=== PATIENT | female | born 1975 | race Two or more races ===

== ENCOUNTER → 2016-11-27 | Day surgery (SDC) | payer OTHER ==
[2016-11-27] VITALS (7 sets, daily range): BP systolic 107–116; BP diastolic 61–71
[~2016-11-27] VITALS: Ht 157.5 cm; Wt 79.4 kg
[~2016-11-27] MED LIST: LR 1000ml 1,000 ML IVLG SCH; LR 1000ml ONE; MULTIVITAMINS1 EAC2 ORAL; NAPROXEN250 MG ORAL; NEXIUM40 MG ORAL; PEPTO-BISM525 MG/15 PO; PREVACID30 MG ORAL; Propofol 10mg/ml 20ml IV ONE
--- NOTE | 2016-11-27 09:33 | Short Stay Surgery H&P ---
History of Present Illness History of Present Illness Chief Complaint Abdominal pains, GERDS. Dysphagia HPI Galilea Barboza is a 41 year old female who was admitted on for Abdominal Pain Patient History Allergies: Coded Allergies: SULFA (SULFONAMIDE ANTIBIOTICS) (Verified Allergy, Unknown, 11/26/16) Childhood allergy PAST MEDICAL HISTORY: Past Surgeries: Social History: Medication History Scheduled Esomeprazole Magnesium (Nexium), 40 MG ORAL DAILY, (Reported) Lansoprazole* (Prevacid*), 30 MG ORAL DAILY, (Reported) Multivitamins* (Multivitamins*), 1 TAB ORAL DAILY, (Reported) Naproxen* (Naprosyn*), 250 MG ORAL TWICE A DAY, (Reported) Miscellaneous Medications Bismuth Subsalicylate (Pepto-Bismol), 525 MG PO, (Reported) Review of Systems Cardiovascular: Reports: no symptoms Respiratory: Reports: no symptoms Skeletal: Reports: trauma Gastrointestinal: Reports: gastro esophageal reflux disease Genitourinary: Reports: no symptoms Neurologic: Reports: no symptoms Endocrine: Reports: no symptoms Hematologic: Reports: no symptoms Physical Exam Vital Signs Last Vital Signs Date Time Temp Pulse Resp B/P Pulse Ox O2 Delivery O2 Flow Rate FiO2 11/27/16 08:59 98.2 87 18 115/71 100 Room Air Labs Laboratory Tests Test 11/27/16 08:30 Urine HCG, Qualitative Negative Skin: normal HENT: normal Heart: normal Lungs: normal Abdomen: abnormal Extremities: normal Genitourinary: normal Plan Plan of Care Upper GI endoscopy and biopsy. Preop Interventions None. Summary of Findings See the reports. Final Diagnosis: Attestation Are the patient's medical conditions optimized for surgery? Attestation Response: yes RANDALL GILES Nov 27, 2016 09:33
--- NOTE | 2016-11-27 09:34 | Pre-Procedure Note/Attestation ---
Pre-Procedure Note/Attestation Complete Prior to Procedure Planned Procedure: left Procedure Narrative: The endoscopic exam of the upper and the lower GI tract. Indications for Procedure Pre-Operative Diagnosis: R/O Peptic Ulcer/gastritis. Attestation I attest that I discussed the nature of the procedure; its benefits; risks and complications; and alternatives (and the risks and benefits of such alternatives ), prior to the procedure, with the patient (or the patient's legal promotional representative). I attest that, if there was a reasonable possibility of needing a blood transfusion, the patient (or the patient's legal promotional representative) was given the [place] Department [employer] standardized written summary, pursuant to the [employer] [place] [employer] Blood Safety Act ([place] Health and Safety Code # 1645, as amended). I attest that I re-evaluated the patient just prior to the surgery and that there has been no change in the patient's H&P, except as documented below: TISHASAID Nov 27, 2016 09:34
--- NOTE | 2016-11-27 09:36 | Endoscopy Procedure Note ---
RANDALL GILES Nov 27, 2016 09:36
--- NOTE | 2016-11-27 09:53 | Anethesia Preoperative Eval ---
Anesthesia Pre-op PMH/ROS General Date of Evaluation: Nov 27, 2016 Time of Evaluation: 09:33 Anesthesiologist: wilman ASA Score: ASA 2 Mallampati Score Class I : Soft palate, uvula, fauces, pillars visible Class II: Soft palate, uvula, fauces visible Class III: Soft palate, base of uvula visible Class IV: Only hard plate visible Mallampati Classification: Class II Surgeon: solomon Diagnosis: GERD Surgical Procedure: egd Anesthesia History: none Allergies: Coded Allergies: SULFA (SULFONAMIDE ANTIBIOTICS) (Verified Allergy, Unknown, 11/26/16) Childhood allergy Past Medical History Gastrointestinal/Genitourinary: Reports: GERD, other - lap choley Musculoskeletal/Integumentary: Reports: other - ankle surgery Anesthesia Pre-op Phys. Exam Physician Exam Last Vital Signs Date Time Temp Pulse Resp B/P Pulse Ox O2 Delivery O2 Flow Rate FiO2 11/27/16 08:59 98.2 87 18 115/71 100 Room Air Airway Exam Mallampati Score: Class II Teeth: intact Anesthesia Pre-op A/P Labs Urine Test Test 11/27/16 08:30 Urine HCG, Qualitative Negative Risk Assessment & Plan Plan: propofol Status Change Before Surgery: José Manuel Vasquez MD Nov 27, 2016 09:53
--- NOTE | 2016-11-27 09:54 | Immediate Post-Op Evaluation ---
Immediate Post-Op Evalulation Immediate Post-Op Evalulation Date of Evaluation: Nov 27, 2016 Time of Evaluation: 10:12 IV Fluids: 400 Blood Pressure Systolic: 106 Blood Pressure Diastolic: 65 Pulse Rate: 76 Respiratory Rate: 23 O2 Sat by Pulse Oximetry: 100 Temperature (Fahrenheit): 97 Pain Score (1-10): 0 Nausea: No Vomiting: No Complications none Patient Status: awake, patent, none Hydration Status: adequate José Manuel Trammell MD Nov 27, 2016 09:54
--- NOTE | 2016-11-27 09:55 | 48 Hour Post Anesthesia Eval ---
Post Anesthesia Evaluation Date of Evaluation: Nov 27, 2016 Time of Evaluation: 10:40 Blood Pressure Systolic: 109 0: 69 Pulse Rate: 78 Respiratory Rate: 17 Temperature (Fahrenheit): 98 O2 Sat by Pulse Oximetry: 100 Airway: patent Nausea: No Vomiting: No Pain Intensity: 0 Hydration Status: adequate Cardiopulmonary Status: stable Mental Status/LOC: patient returned to baseline Follow-up Care/Observations: n/a Post-Anesthesia Complications: tolerated well Follow-up care needed: ready to discharge José Manuel Trammell MD Nov 27, 2016 09:55
--- NOTE | 2016-11-27 10:01 | Endoscopy Procedure Note ---
Endoscopy Procedure Note Indication for Procedure: Abdominal pains and dysphagia. Procedures Performed: EGD - Mininmal antritis biopsied,Gastric polyposis, a 1/ 2 cm polyps removed from mid body greator curavtor by hot snare and a few other 2mm polyps removed by cold biopsy. Specimen: yes Pt Tolerated Procedure Well: Yes Estimated Blood Loss: none Anesthesiologist: Dr. Trammell. Anesthesia: moderate sedation Medication Given: see anesthesia record Implant(s) used?: No 50 yrs or older w/o bx or poly: Not Applicable 10yrs. F/U not recommended: Not Applicable If not recommended, why?: Med reason:<3 yrs.: System Reason:<3 yrs.: RANDALL GILES Nov 27, 2016 10:01
--- NOTE | 2016-11-27 10:02 | Discharge Instructions ---
Discharge Instructions Discharge Instructions Follow up with: see the doctor after two weeks in the office. For Congestive Heart Failure Reminder Report to your physician any weight gain of 5 pounds or more in one week. RANDALL GILES Nov 27, 2016 10:02
--- NOTE | 2016-11-27 17:38 | Operative Note - Dictated ---
DATE OF OPERATION: 11/27/2016 PROCEDURE: Esophagogastroduodenoscopy with biopsy. REFERRING PHYSICIAN: This patient was referred by Dr. Karthik Sumner. PREOPERATIVE DIAGNOSES: Abdominal pain, epigastric pain and dysphagia. POSTOPERATIVE DIAGNOSES: 1. Mild antritis, biopsied. 2. Multiple gastric polyp consistent with gastric polyposis, 0.5 centimeter pedunculated polyp was removed along with a few small flat 1 to 2 mm polypoid lesion, which was removed with cold biopsy forceps. The 1.5 centimeter polyp however was removed with hot snare. Otherwise, normal study. MEDICATIONS USED: Per Dr. Trammell, anesthesiologist. INSTRUMENT: GIF Olympus upper gastrointestinal video endoscope. DESCRIPTION OF PROCEDURE: The patient after arriving endoscopy unit, was told about risks and benefits of the procedure, which she accepted and signed the informed consent. She was then put on the left lateral decubitus position. After adequate IV sedation, the scope was gently passed through the cricopharyngeal area, was lodged into the upper esophagus, and gradually advanced towards gastroesophageal junction. The entire length of the esophagus looked normal. No evidence of varices, inflammatory process, ulceration, stricture, exudate etc. was found. GE junction also looked normal without evidence of Santa's or hiatal hernia. The scope at this time was advanced into the stomach. Gastric cavity was distended. The areas of the fundus and the body and the antrum were examined in an bath steward fashion. The gastric mucosa looked normal. There was no ulcers, however, multiple different size polypoid lesion was seen in the stomach, the biggest one was approximately 0.5 cm, which was pedunculated and soft and looked quite benign. It was grabbed with a hot snare and totally removed and the specimen was sent to the pathology lab. There were also other flat diminutive small polypoid lesion, size of 1 to 2 millimeter, as well as they were taken out by cold biopsy forceps and the specimen was sent to the pathology lab. The rest of the stomach looked normal except minimal inflammatory process in the antral area, which was also biopsied. Finally, the scope was guided into the duodenum. First and second portion of duodenum were found to be completely normal. At this time, one random biopsy from gastric body was obtained for evaluation of Helicobacter pylori infection and subsequently procedure was terminated. The patient tolerated the procedure well and left the endoscopy room in good condition. Said Gemma Foster DR: LAUREN JOB#: [id number] CC:
--- NOTE | 2016-11-27 18:08 | Pre-op HX & Phy Repo 2 SIG ---
DATE OF ADMISSION: 11/27/2016 This patient was referred by Dr. Karthik Sumner. This is a preoperative history and physical. HISTORY OF PRESENT ILLNESS: The patient is a 41-year-old female who is being seen prior to undergoing procedure for upper GI endoscopy for which she has been scheduled to receive evaluation of abdominal pain that she has been experiencing subsequent to her work injury. The applicant basically complaining of pain located over the mid epigastric area of moderate intensity 4-5/10, 10 being maximum. The applicant does have symptoms of gastroesophageal reflux as well. Sometime the pain is radiating towards the left side of the chest and arm as well as some voice changes. She feels pressure over her throat and does have moderate amount of heartburn for which she has been scheduled to receive medications such as Prilosec or Nexium, she takes it occasionally at night. The applicant also complains of difficulty swallowing for solids and liquids intermittently. There has been no history of major gastrointestinal bleeding however. The applicant after being injured in the job received nonsteroidal anti-inflammatory agents such as naproxen and at which time she start to experience the symptoms, she states. 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 She was working on [employer] and as such among one of these functions she got injured and started to have severe pain over the right ankle which has swelling so was started on multiple medications including naproxen and received MRIs, x-rays, and was seen by different consultants and still continues to suffer from these pains from time to time and she also does take occasional naproxen. PAST MEDICAL HISTORY: Basically is not significant except injuries over the right wrist. PAST SURGICAL HISTORY: Cholecystectomy, right ankle surgery, breast augmentation. PRESENT MEDICATIONS: Naproxen, Prilosec, and occasional Nexium. HABITS: She does not smoke but drinks occasionally. REVIEW OF SYSTEMS: Basically see present illness. PHYSICAL EXAMINATION: GENERAL: Alert and oriented woman who answers questions quite properly. VITAL SIGNS: All stable. HEENT: Normocephalic. Pupils are equal in size and reactive to light. No jaundice. Buccal cavity, tongue midline and well hydrated. No ulcers. NECK: Supple. No JVD, thyromegaly, or adenopathy. CHEST: Clear to auscultation and percussion. No rales or rhonchi. HEART: S1 and S2 normal. Regular rhythm. No gallops or murmur. ABDOMEN: Soft, but there are areas of tenderness over upper part of the abdomen, particularly in the sides as well but there is no organomegaly. No masses. Bowel sounds are present. EXTREMITIES: Unremarkable. PRELIMINARY IMPRESSION: 1. Epigastric pain of uncertain etiology, rule out nonsteroidal anti-inflammatory drug induced gastropathy, erosive gastritis, peptic ulcer disease, esophagitis. 2. Dysphagia of uncertain etiology rule out nonsteroidal anti-inflammatory drug induced esophagitis, gastroesophageal reflux disease, and esophageal spasm. 3. History of bodily injury, work related. RECOMMENDATION: The applicant seems at this time seems to be quite stable to undergo the procedure of upper gastrointestinal endoscopy. She understands the risks and benefits and signed the consent Said Gemma Foster DR: Greta JOB#: [id number] CC:
== END | disposition home or self-care (01) ==
LOC: GAS 08:13
DX: K29.40 Chronic atrophic gastritis without bleeding (principal); K31.7 Polyp of stomach and duodenum; K21.9 Gastro-esophageal reflux disease without esophagitis; R13.10 Dysphagia, unspecified; Z88.2 Allergy status to sulfonamides; Z90.49 Acquired absence of other specified parts of digestive tract
CPT/HCPCS: 43239; 43251; 81025; J2704; J7120; 94003; 94150